=== PATIENT | female | born 1990 | race Two or more races ===

== ENCOUNTER 2019-08-24 17:05 | Emergency (ER) | payer OTHER ==
[~2019-08-24] VITALS: Ht 167.6 cm; Wt 60.8 kg
--- NOTE | 2019-08-24 17:25 | NUR ---
PATIENT BROUGHT IN BY PD, FOR RFA ABSCESS. A/OX4, BREATHING EVEN AND UNLABORED, NO SOB NOTED. NEEDS ATTENDED, KEPT COMFORTABLE. WILL CONTINUE TO MONITOR.
[2019-08-24] MEDS ORDERED: LIDOCAINE HCL/MPF 1% 30 ML VIAL IJ ONE (18:08)
[2019-08-24] MEDS ORDERED: LIDOCAINE HCL/PF 1% 30 ML VIAL TP ONE (18:30)
[2019-08-24 19:23] VITALS: BP 134/84
--- NOTE | 2019-08-24 19:23 | NUR ---
Medically cleared for booking, I&D done by Dr. Knutson, covered with dry dressing. [facility]. Written and verbal after care instructions given. Patient verbalizes understanding of instruction.
== END 2019-08-24 19:24 ==
LOC: ER 17:07
DX: L02.413 Cutaneous abscess of right upper limb (principal); F19.10 Other psychoactive substance abuse, uncomplicated
CPT/HCPCS: 10060; 76536; 99284; A6407; J3490